=== PATIENT | female | born 1995 | race African-American/Black ===

== ENCOUNTER 2017-12-14 11:54 | Inpatient (IN) | payer OTHER ==
[~2017-12-14] VITALS: Ht 160 cm; Wt 51.7 kg
[2017-12-14 12:07] VITALS: Ht 160 cm; Wt 51.7 kg
[2017-12-14 12:50] LABS: BASOPHIL % 0.5 % (0-2); PLATELET COUNT 155 x10^3mcL (130-400); RED CELL DISTRIBUTION WIDTH 12.2 % (11.5-14.5)
[2017-12-14 12:59] LABS: microscopic required? NO
[2017-12-14 13:05] LABS: CALCIUM 8.3 mg/dL (8.5-10.1); CHLORIDE SERUM 112 mmol/L (98-107); GFR1 > 60 mL/min; GLUCOSE SERUM 85 mg/dL (74-106); POTASSIUM SERUM 3.7 mmol/L (3.5-5.1); SODIUM SERUM 149 mmol/L (136-145)
[2017-12-14 13:10] LABS: ALBUMIN 3.5 g/dL (3.4-5.0); ALKALINE PHOSPHATASE 49 U/L (46-116); ALT/SGPT 18 U/L (14-59); AST/SGOT 13 U/L (15-37); BILIRUBIN TOTAL 0.63 mg/dL (0.20-1.00); TOTAL PROTEIN, SERUM 6.3 g/dL (6.4-8.2)
[2017-12-14 13:16] LABS: UA SPECIFIC GRAVITY 1.015 (1.005-1.035); urine erythrocyte NEGATIVE (NEGATIVE)
[2017-12-14 13:31] LABS: AMPHETAMINE QUAL UR NONE DETECTED (NEG <=1000)
[2017-12-14] MEDS ORDERED: FLUOXETINE HYDR20 M2 PO (13:50)
[2017-12-14] MEDS ORDERED: TOPAMAX50 M1 PO (13:51)
[2017-12-14] MEDS ORDERED: RESTORIL15 MG PO (13:51)
[2017-12-14] MEDS ORDERED: RISPERDAL0.5 MG PO (13:52)
[2017-12-14 14:44] LABS: T3 TOTAL 0.67 ng/mL
[2017-12-14 14:59] LABS: MAGNESIUM 2.3 mg/dL (1.8-2.4); PHOSPHOROUS 4.3 mg/dL (2.5-4.9)
[2017-12-14 15:01] LABS: CHOLESTEROL/HDL RATIO 2.5
[2017-12-14 15:23] LABS: FREE T4 0.96 ng/dL (0.76-1.46); FREE THYROXINE INDEX 2.2 ug/dL (1.4-4.5); T4(THYROXINE) 5.9 ug/dL (4.7-13.3)
[2017-12-14 16:41] VITALS: BP 113/61
[2017-12-14 19:31] VITALS: BP 108/60
[2017-12-14 23:41] VITALS: BP 108/60
[2017-12-15 03:11] VITALS: BP 108/63
[2017-12-15 05:00] LABS: BASOPHIL % 0.4 % (0-2); PLATELET COUNT 141 x10^3mcL (130-400); RED CELL DISTRIBUTION WIDTH 12.3 % (11.5-14.5)
[2017-12-15 05:10] LABS: CALCIUM 8.1 mg/dL (8.5-10.1); CARBON DIOXIDE 16.5 mmol/L (21-32); CHLORIDE SERUM 112 mmol/L (98-107); CREATININE SERUM 0.9 mg/dL (0.6-1.0); GFR1 > 60 mL/min; GLUCOSE SERUM 69 mg/dL (74-106); PHOSPHOROUS 2.8 mg/dL (2.5-4.9); POTASSIUM SERUM 3.7 mmol/L (3.5-5.1); SODIUM SERUM 145 mmol/L (136-145)
[2017-12-15 07:45] VITALS: BP 100/58
[2017-12-15 11:07] VITALS: BP 99/58
[2017-12-15 15:10] VITALS: BP 119/88
[2017-12-15 19:43] VITALS: BP 121/78
[2017-12-16 05:28] VITALS: BP 102/62
[2017-12-16 06:10] LABS: BASOPHIL % 0.2 % (0-2); PLATELET COUNT 161 x10^3mcL (130-400); RED CELL DISTRIBUTION WIDTH 12.1 % (11.5-14.5)
[2017-12-16 06:35] LABS: CALCIUM 8.7 mg/dL (8.5-10.1); CARBON DIOXIDE 19.7 mmol/L (21-32); CHLORIDE SERUM 111 mmol/L (98-107); CREATININE SERUM 0.9 mg/dL (0.6-1.0); GFR1 > 60 mL/min; GLUCOSE SERUM 98 mg/dL (74-106); POTASSIUM SERUM 3.8 mmol/L (3.5-5.1); SODIUM SERUM 145 mmol/L (136-145)
[2017-12-16 08:36] VITALS: BP 102/62
[2017-12-16 09:46] VITALS: BP 105/61
== END 2017-12-16 10:10 | disposition home or self-care (01) | DRG 812 ==
LOC: ED 11:54 → EDBD 11:54 → ED 11:54 → DU 13:50 → IC 13:50 → MU 12-15 21:48 → IC 12-15 21:57 → MU 12-15 22:00
PROVIDERS: Emergency Medicine; Family Medicine
DX: T50.992A Poisoning by other drugs, medicaments and biological substances, intentional self-harm, initial encounter (principal); G92 Toxic encephalopathy; E87.8 Other disorders of electrolyte and fluid balance, not elsewhere classified; E87.0 Hyperosmolality and hypernatremia; Z88.0 Allergy status to penicillin; F43.10 Post-traumatic stress disorder, unspecified; Y92.89 Other specified places as the place of occurrence of the external cause; F31.81 Bipolar II disorder; M41.34 Thoracogenic scoliosis, thoracic region
CPT/HCPCS: 36600; 83880; 84439; G0480; J7030; Q0092